=== PATIENT | female | born 1965 | race Caucasian/White ===

== ENCOUNTER 2017-05-16 08:05 | Emergency (ER) | payer BC ==
[~2017-05-16] VITALS: Ht 162.6 cm; Wt 111.8 kg
[~2017-05-16 08:05] MED LIST: FLOMAX0.4 MG PO; MOTRIN600 MG PO; VICODIN 5-3001 EACH PO; ZESTORETIC 20-1 EAC1 NG; ZOFRAN4 MG PO
[2017-05-16 08:28] LABS: HEMATOCRIT 37.5 % (36.0-46.0); HEMOGLOBIN 12.4 G/DL (11.9-15.5); MCH 27.6 PG (29.0-34.0); MCHC 33.1 G/DL (30.0-36.0); MCV 83.3 FL (83-99); PLATELET COUNT 240 K/uL (156-360); RBC DIS.WIDTH-CV 13.1 % (11.8-14.6); RBC DIS.WIDTH-SD 39.8 % (39-53)
[2017-05-16 08:36] LABS: CHLORIDE 104 mEq/L (99-109); SODIUM 140 mEq/L (136-147)
[2017-05-16 08:38] LABS: GLUCOSE 135 mg/dL (70-99)
[2017-05-16 08:42] LABS: CREATININE 0.9 mg/dL (0.6-1.3); GFR ESTIMATE (CALCULATED) > 59 mL/min/
[2017-05-16 08:43] LABS: UREA NITROGEN (BUN) 27 mg/dL (9-23)
[2017-05-16 10:18] LABS: APPEARANCE CLOUDY ((CLEAR)); BILIRUBIN NEGATIVE; BLOOD LARGE; COLOR YELLOW ((YELLOW)); GLUCOSE (STRIP) NEGATIVE; KETONES NEGATIVE; LEUKOCYTES NEGATIVE; NITRITE NEGATIVE; PROTEIN (STRIP) 100; SPECIFIC GRAVITY 1.028 (1.000-1.030); UROBILINOGEN 0.2 MG/DL (0.2-1.0)
[2017-05-16 10:48] LABS: EPITHELIAL CELLS RARE /HPF; RED BLOOD CELLS TNTC /HPF (0-5)
[2017-05-16 10:49] LABS: BACTERIA RARE /HPF; MUCUS TRACE /LPF; UCUL ADDED? YES
[2017-05-16] MEDS ORDERED: NAPROSYN500 MG PO (12:12)
[2017-05-16] MEDS ORDERED: NORCO 5/3251 TABLET PO (12:12)
[2017-05-16] MEDS ORDERED: FLOMAX0.4 MG PO (12:12)
[2017-05-16] MEDS ORDERED: ZOFRAN ODT4 MG PO (12:12)
[2017-05-16 12:31] VITALS: BP 140/56
== END 2017-05-16 12:31 | disposition home or self-care (01) ==
LOC: EME 08:05
DX: N20.2 Calculus of kidney with calculus of ureter (principal); I10 Essential (primary) hypertension; Z87.442 Personal history of urinary calculi; Z90.49 Acquired absence of other specified parts of digestive tract; Z90.722 Acquired absence of ovaries, bilateral
CPT/HCPCS: 74176; 80048; 81003; 84702; 85027; 87086; 99281; 99283

== ENCOUNTER → 2017-11-11 | Outpatient (CLI) | payer BC ==
[~2017-11-11] MED LIST changes: +FEXOFENADINE H180 MG PO; +NAPROSYN500 MG PO; +NORCO 5/3251 TABLET PO; +UROCIT-K15 MEQ PO; -ZESTORETIC 20-1 EAC1 NG; +ZESTORETIC 20-1 EAC1 PO; +ZOFRAN ODT4 MG PO; +[UNRECOGNIZED DRUG - REMARK] PO
== END | disposition home or self-care (01) ==
LOC: CDC 08:58
DX: Z01.810 Encounter for preprocedural cardiovascular examination (principal)
CPT/HCPCS: 93000

== ENCOUNTER 2017-11-15 07:04 | Day surgery (SDC) | payer BC ==
[~2017-11-15] VITALS: Ht 162.6 cm; Wt 112.4 kg
[~2017-11-15 07:04] MED LIST changes: -UROCIT-K15 MEQ PO
[2017-11-15] MEDS ORDERED: UROCIT-K15 MEQ PO (07:53)
[2017-11-15 07:54] VITALS: BP 127/62
[2017-11-15] MEDS ORDERED: NORCO 5/3251 TABLET PO (10:26)
[2017-11-15 12:05] VITALS: BP 120/70
[2017-11-15 12:48] VITALS: BP 143/61
== END 2017-11-15 13:07 | disposition home or self-care (01) ==
LOC: SDC
DX: N95.0 Postmenopausal bleeding (principal); N84.0 Polyp of corpus uteri; E66.01 Morbid (severe) obesity due to excess calories; Z68.41 Body mass index [BMI] 40.0-44.9, adult; K44.9 Diaphragmatic hernia without obstruction or gangrene; E21.5 Disorder of parathyroid gland, unspecified; Z90.710 Acquired absence of both cervix and uterus; Z90.79 Acquired absence of other genital organ(s); Z90.722 Acquired absence of ovaries, bilateral; Z90.49 Acquired absence of other specified parts of digestive tract; Z80.8 Family history of malignant neoplasm of other organs or systems; Z82.49 Family history of ischemic heart disease and other diseases of the circulatory system; Z83.3 Family history of diabetes mellitus; Z80.0 Family history of malignant neoplasm of digestive organs; Z91.09 Other allergy status, other than to drugs and biological substances; Z88.5 Allergy status to narcotic agent
CPT/HCPCS: 88305; J0131; J0330; J1100; J1170; J2405; J3010